=== PATIENT | female | born 1995 | race African-American/Black ===

== ENCOUNTER 2021-01-12 20:08 | Emergency (ER) | payer OTHER ==
[~2021-01-12] VITALS: Ht 152.4 cm; Wt 72.6 kg
[2021-01-12] MEDS ORDERED: ROBAXIN 750 MG750 MG PO (22:01)
[2021-01-12 22:28] VITALS: BP 129/86
== END 2021-01-12 22:30 | disposition home or self-care (01) ==
LOC: ER 20:08
DX: S16.1XXA Strain of muscle, fascia and tendon at neck level, initial encounter (principal); V43.52XA Car driver injured in collision with other type car in traffic accident, initial encounter; Y93.89 Activity, other specified; Y92.89 Other specified places as the place of occurrence of the external cause; Y99.8 Other external cause status